=== PATIENT | female | born 1990 | race Caucasian/White ===

== ENCOUNTER 2023-10-18 07:33 | Emergency (ER) | payer OTHER, MEDICAID ==
[~2023-10-18] VITALS: Ht 170.2 cm; Wt 68.0 kg
[2023-10-18] MEDS ORDERED: LORazepam 0.5 MG TAB PO ONE (08:00)
[2023-10-18 20:31] VITALS: PULSE 103; RESP 16; O2SAT 97
[2023-10-19 20:00] VITALS: PULSE 82; RESP 18; O2SAT 98
[2023-10-19] MEDS ORDERED: LORazepam 0.5 MG TAB PO PRN (23:15)
[2023-10-20 08:00] VITALS: PULSE 84; RESP 14; O2SAT 99
[2023-10-20 10:55] LABS: Amphetamine Screen, Urine Pos (NEGATIVE); Barbiturate Scree,Urine Neg (NEGATIVE); Benzodiazephine Screen, Urine Neg (NEGATIVE); Cannabinoid Screen, Urine Neg (NEGATIVE); Cocaine Screen, Urine Neg (NEGATIVE); Opiate Scree,Urine Neg (NEGATIVE); Phencyclidine Screen, Urine Neg (NEGATIVE)
[2023-10-20] MEDS: OLANZapine 5 MG TAB PO SCH ×2 (10:57→23:43)
[2023-10-20 20:14] VITALS: BP 128/82; PULSE 74; RESP 16; TEMP 98.2; O2SAT 99
[2023-10-20] MEDS ORDERED: LORA-655 PO (20:18)
[2023-10-20] MEDS ORDERED: OLAN20TA PO (20:18)
== END 2023-10-21 00:17 | disposition home or self-care (01) ==
LOC: EDBD 07:33 → ER 07:33
DX: F20.9 Schizophrenia, unspecified (principal); Z79.899 Other long term (current) drug therapy
CPT/HCPCS: 36415; 80307; 80320; 81025